=== PATIENT | female | born 1960 | race Caucasian/White ===

== ENCOUNTER → 2018-07-28 | Outpatient (CLI) | payer BC ==
--- NOTE | 2018-07-29 08:06 | MM ---
Reason for exam: screening (asymptomatic). Last mammogram was performed 2 years and 11 months ago. History: Patient is postmenopausal and had first child at age 34. Physical Findings: A clinical breast exam by your physician is recommended on an annual basis and results should be correlated with mammographic findings. MG 3D Screening Mammo W/Cad Bilateral CC and MLO view(s) were taken. Prior study comparison: September 12, 2015, bilateral MG 3d screening mammo w/cad. August 11, 2013, bilateral digital screening mammo w/CAD. There are scattered fibroglandular densities. Focal asymmetry upper outer right beast anterior third position. This finding is changed when compared with previous exams. ASSESSMENT: Incomplete: need additional imaging evaluation, BI-RAD 0 RECOMMENDATION: Special view mammogram of the right breast. If lesion persists on supplemental views, image directed ultrasound is recommended. [facility] will attempt to contact patient to return for supplemental views and ultrasound if indicated.
== END ==
LOC: RADMAMWWP 07:25
PROVIDERS: ATTEND Internal Medicine
DX: Z12.31 Encounter for screening mammogram for malignant neoplasm of breast (principal)
CPT/HCPCS: 77063; 77067

== ENCOUNTER → 2018-07-31 | Outpatient (CLI) | payer BC ==
--- NOTE | 2018-07-31 14:21 | MM ---
Reason for exam: additional evaluation requested from abnormal screening. Last mammogram was performed less than 1 month ago. History: Patient is postmenopausal and had first child at age 34. Physical Findings: Nurse did not find any significant physical abnormalities on exam. MG 3D Work Up W/Cad RT CC and MLO view(s) were taken of the right breast. Prior study comparison: July 28, 2018, bilateral MG 3d screening mammo w/cad. September 12, 2015, bilateral MG 3d screening mammo w/cad. There are scattered fibroglandular densities. No suspicious abnormality. Lower outer quadrant anterior depth focal asymmetry improves on additional views and appears similar back to 2016. No significant new findings when compared with previous films. These results were verbally communicated with the patient and result sheet given to the patient on 07/31/18. ASSESSMENT: Benign, BI-RAD 2 RECOMMENDATION: Return to routine screening mammogram schedule for both breasts.
== END | disposition home or self-care (01) ==
LOC: RADMAMWWP 13:22
PROVIDERS: ATTEND Internal Medicine
DX: R92.8 Other abnormal and inconclusive findings on diagnostic imaging of breast (principal)
CPT/HCPCS: 77061; 77065

== ENCOUNTER → 2021-04-26 | Outpatient (CLI) | payer BC | END | disposition home or self-care (01) | LOC: LABWHC1 09:20 | PROVIDERS: ATTEND Internal Medicine Gastroenterology | DX: R19.7 Diarrhea, unspecified (principal) | CPT/HCPCS: 83630; 87324 ==

== ENCOUNTER → 2022-04-25 | Outpatient (CLI) | payer BC ==
--- NOTE | 2022-04-25 09:29 | MM ---
Reason for Exam: Screening (asymptomatic). Last mammogram was performed 3 year(s) and 9 month(s) ago. Patient History: Menarche at age 10. First Full-Term at age 34. Late child-bearing (after 30). Postmenopausal. Risk Values: Mariam 5 year model risk: 2.2%. NCI Lifetime model risk: 9.1%. Prior Study Comparison: 09/12/2015 Bilateral Screening Mammogram, [facility]. 07/28/2018 Bilateral Screening Mammogram, [facility]. 07/31/2018 Right Diagnostic Mammogram, [facility]. Tissue Density: There are scattered fibroglandular densities. Findings: Analyzed By CAD. There is no suspicious group of microcalcifications or new suspicious mass in either breast. Overall Assessment: Negative, BI-RAD 1 Management: Screening Mammogram of both breasts in 1 year. A clinical breast exam by your physician is recommended on an annual basis and results should be correlated with mammographic findings. Electronically signed and approved by: Prakash Malave M.D.
== END | disposition home or self-care (01) ==
LOC: RADMAMWWP 07:13
PROVIDERS: ATTEND Internal Medicine
DX: Z12.31 Encounter for screening mammogram for malignant neoplasm of breast (principal); Z78.0 Asymptomatic menopausal state
CPT/HCPCS: 77063; 77067

== ENCOUNTER → 2023-06-10 | Outpatient (CLI) | payer BC ==
--- NOTE | 2023-06-10 13:04 | BD ---
EXAMINATION TYPE: Axial Bone Density DATE OF EXAM: 06/10/2023 CLINICAL HISTORY: 63 years old Female. ICD-10 CODE: N95.8 OTHER SPECIFIED MENOPAUSAL AND PERIMENOPAU ESTELLA Height: 61.5" Weight: 129.3lbs FRAX RISK QUESTIONS: Alcohol (3 or more units per day): No Family History (Parent hip fracture): No Glucocorticoids (More than 3mos): Possibly, in 2009 for ulcerative colitis, taken for 2 months (Ex: prednisone, prednisolone, methylprednisolone, dexamethasone, and hydrocortisone). History of Fracture in Adulthood: Yes Secondary Osteoporosis: 1. Type 1 Diabetes: No 2. Hyperthyroidism: No 3. Menopause before 45: No 4. Malnutrition: No 5. Chronic liver disease: No Rheumatoid Arthritis: No Current Tobacco Use: No RISK FACTORS HISTORY OF: Hip Fracture (Right/Left): Yes, left femur fx, radha and screws through hip as well Spine Fracture: No History of Wrist Fracture: Yes, Left When: 1990 Surgery to Spine/Hip(right/left)/Wrist (right/left): Left wrist When: 1990 Family History of Osteoporosis: Yes, Mother Active: Yes Diet low in dairy products/other sources of calcium: No Postmenopausal woman: Yes Lost more than 2 inches in height since high school: No Frequent falls: No Poor Health: No Hyperparathyroidism: No Adrenal Insufficiency: No MEDICATIONS: Prednisone or other steroids: No Thyroid Medications: No Osteoporosis Medications: No Additional Medications: Ulcerative Colitis meds, cholesterol meds, Vitamin D, Multivitamin Additional History: Ulcerative Colitis. Left femur fx with sx, only scanned right femur/hip EXAM MEASUREMENTS: Bone mineral densitometry was performed using the [employer] System. Bone mineral density as measured about the Lumbar spine is: ----- L1-L4(G/cm2): 0.927 T Score Values are as follows: ----- L1: -2.4 ----- L2: -2.8 ----- L3: -1.9 ----- L4: -1.8 ----- L1-L4: -2.1 Z Score Values are as follows: ----- L1: -0.6 ----- L2: -1.0 ----- L3: -0.1 ----- L4: 0.0 ----- L1-L4: -0.3 Baseline @MPH Bone mineral density about the R hip (g/cm2): 1.039 T Score values are as follows: -----R Neck: -0.5 -----R Total: 0.3 Z Score values are as follows: -----R Neck: 1.0 -----R Total: 1.6 Baseline @MPH FRAX%s: The graph provided illustrates a 12.0% chance for a major osteoporotic fx and a 0.6% chance f or the hips probability for fx in 10 years time. IMPRESSION: Osteopenia (T Score between -2.5 and -1). There is slightly increased risk of fracture and the patient may be considered for treatment. Re-Screen 2-5 years. NOTE: T-SCORE=SD OF THE YOUNG ADULT MEAN.
== END | disposition home or self-care (01) ==
LOC: RADBDWWP 08:24
PROVIDERS: ATTEND Internal Medicine
DX: M85.89 Other specified disorders of bone density and structure, multiple sites (principal); M81.0 Age-related osteoporosis without current pathological fracture; Z78.0 Asymptomatic menopausal state
CPT/HCPCS: 77080

== ENCOUNTER → 2023-06-20 | Outpatient (CLI) | payer BC ==
--- NOTE | 2023-06-20 10:28 | MM ---
Reason for Exam: Screening (asymptomatic). Last mammogram was performed 1 year(s) and 1 month(s) ago. Patient History: Menarche at age 10. First Full-Term at age 34. Late child-bearing (after 30). Postmenopausal. Risk Values: Mariam 5 year model risk: 2.3%. NCI Lifetime model risk: 8.6%. Prior Study Comparison: 07/28/2018 Bilateral Screening Mammogram, [facility]. 07/31/2018 Right Diagnostic Mammogram, [facility]. 04/25/2022 Bilateral MG 3D screening mammo w/cad, [facility]. Tissue Density: There are scattered fibroglandular densities. Findings: Analyzed By CAD. There is no suspicious group of microcalcifications or new suspicious mass in either breast. Overall Assessment: Negative, BI-RAD 1 Management: Screening Mammogram of both breasts in 1 year. A clinical breast exam by your physician is recommended on an annual basis and results should be correlated with mammographic findings. Note on Mariam scores and lifetime risk: 1. A Mariam score greater than 3% is considered moderate risk. If this is the case, consider specialist referral to assess eligibility for a risk reducing agent. If overall lifetime risk for the development of breast cancer is 20% or higher, the patient may qualify for future screening with alternating mammogram and breast MRI. Electronically signed and approved by: Terry Mejia D.O.
== END | disposition home or self-care (01) ==
LOC: RADMAMWWP 07:43
PROVIDERS: ATTEND Internal Medicine
DX: Z12.31 Encounter for screening mammogram for malignant neoplasm of breast (principal); Z78.0 Asymptomatic menopausal state
CPT/HCPCS: 77063; 77067

== ENCOUNTER → 2024-01-27 | Outpatient (CLI) | payer BC ==
--- NOTE | 2024-01-27 11:22 | CA ---
Exercise Stress Test Report Name: Carolyn Damon Exam Date: 01/27/2024 09:20 Exam Location: [facility] Ht (in): 62 Wt (lb): 129 BSA: 1.59 Ordering Phys: Thelma Gordon MD Referring Phys: Thelma Gordon MD Technologist: Aurea Nolan RDCS Age: 63 Gender: F : 1960 Procedure CPT: Indications: I10 HTN ICD-10 Codes: Patient History: Medications: SEE LIST Meds past 24 hrs: Pretest Chest Pain: STRESS TEST Luis Protocol Exercise Duration (min:sec): 09:[address] Depressions (mm): Angina Score: Matt Score: Resting HR (bpm): 72 Peak HR (bpm): 134 Resting BP (mmHg): 176 / 78 Peak BP (mmHg): 204 / 70 MPHR: 155 Target HR: 132 % MPHR: 86 METS: 10.9 Total Dose: Peak Dose: Atropine: Double Product: 40116 BP Response: Stress Termination: Reached target heart rate Stress Symptoms: WINDED, SLIGHT HEADACHE Stress Summary: ECG ANALYSIS Resting ECG: Normal sinus rhythm normal axis normal intervals Stress ECG: Patient exercised on Luis protocol for 9 and half minutes achieving 85% of predicted maximal heart rate without chest pain or diagnostic ST segment depression CONCLUSIONS good exercise tolerance Negative stress test by EKG criteria Dr. Mick Sanders MD (Electronically Signed) Final Date: 27 January 2024 11:21
--- NOTE | 2024-01-27 11:25 | CA ---
Transthoracic Echo Report Name: Carolyn Damon Age: 63 Gender: F : 1960 Exam Date: 01/27/2024 08:47 Exam Location: [facility] Ht (in): 62 Wt (lb): 129 Ordering Physician: Thelma Gordon MD Attending/Referring Phys: Thelma Gordon MD Stockroom Clerk Elise Casillas, RD Procedure CPT: Indications: I10 HTN Cardiac Hx: Technical Quality: Good Contrast 1: Total Dose (mL): Contrast 2: Total Dose (mL): MEASUREMENTS (Male / Female) Normal Values 2D ECHO LV Diastolic Diameter PLAX 3.4 cm 4.2 - 5.9 / 3.9 - 5.3 cm LV Systolic Diameter PLAX 1.7 cm IVS Diastolic Thickness 1.1 cm 0.6 - 1.0 / 0.6 - 0.9 cm LVPW Diastolic Thickness 1.0 cm 0.6 - 1.0 / 0.6 - 0.9 cm LV Relative Wall Thickness 0.6 RV Internal Dim ED PLAX 2.9 cm LA Systolic Diameter LX 3.6 cm 3.0 - 4.0 / 2.7 - 3.8 cm LV Diastolic Volume MOD BP 56.2 cm??? 67 - 155 / 56 - 104 cm??? LV Systolic Volume MOD BP 17.2 cm??? 22 - 58 / 19 - 49 cm??? LV Ejection Fraction MOD BP 69.5 % >= 55 % LV Cardiac Index MOD BP 1673.9 cm???/min???m??? LV Diastolic Volume MOD 4C 55.7 cm??? LV Systolic Volume MOD 4C 18.9 cm??? LV Ejection Fraction MOD 4C 66.1 % LV Cardiac Index MOD 4C 1578.7 cm???/min???m??? LV Diastolic Length 4C 6.2 cm LV Systolic Length 4C 4.4 cm LV Diastolic Volume MOD 2C 56.3 cm??? LV Systolic Volume MOD 2C 15.5 cm??? LV Ejection Fraction MOD 2C 72.4 % LV Cardiac Index MOD 2C 1748.6 cm???/min???m??? LV Diastolic Length 2C 6.1 cm LV Systolic Length 2C 4.2 cm LA Volume 61.0 cm??? 18 - 58 / 22 - 52 cm??? LA Volume Index 37.9 cm???/m??? 16 - 28 cm???/m??? M-MODE Aortic Root Diameter MM 2.8 cm LA Systolic Diameter MM 3.3 cm LA Ao Ratio MM 1.2 AV Cusp Separation MM 1.5 cm DOPPLER AI Peak Velocity 325.1 cm/s AI Peak Gradient 42.3 mmHg AI Pressure Half Time 1228.4 ms MV Area PHT 3.4 cm??? Mitral E Point Velocity 59.4 cm/s Mitral A Point Velocity 68.0 cm/s Mitral E to A Ratio 0.9 MV Deceleration Time 221.8 ms TR Peak Velocity 219.0 cm/s TR Peak Gradient 19.2 mmHg FINDINGS Left Ventricle Left ventricular ejection fraction is estimated at 55-60 %. Mildly increased septal wall thickness. Left ventricular cavity size normal. No obvious regional wall motion abnormalities. Right Ventricle Normal right ventricular size and function. Right ventricular systolic pressure within normal limits. Right Atrium Normal right atrial size. Left Atrium Mildly increased left atrial volume. Mitral Valve Structurally normal mitral valve. Mild mitral regurgitation.no mitral stenosis. Aortic Valve Trileaflet aortic valve. No aortic stenosis. Mild aortic regurgitation. Tricuspid Valve Structurally normal tricuspid valve. Mild tricuspid regurgitation. No tricuspid stenosis. Pulmonic Valve Structurally normal pulmonic valve. Trace pulmonic regurgitation. No pulmonic stenosis. Pericardium No pericardial or pleural effusion. Aorta Normal size aortic root and proximal ascending aorta. CONCLUSIONS Normal LV function Mild mitral and dilated regurgitation Previewed by: Dr. Mick Sanders MD (Electronically Signed) Final Date: 27 January 2024 11:24
== END | disposition home or self-care (01) ==
LOC: RADECHMAIN 08:33
PROVIDERS: ATTEND Internal Medicine
DX: I10 Essential (primary) hypertension (principal)
CPT/HCPCS: 93017; 93306

== ENCOUNTER → 2024-08-02 | Outpatient (CLI) | payer BC ==
--- NOTE | 2024-08-02 22:31 | MM ---
Reason for Exam: Screening (asymptomatic). Last mammogram was performed 1 year(s) and 2 month(s) ago. Patient History: Menarche at age 10. First Full-Term at age 34. Late child-bearing (after 30). Postmenopausal. Risk Values: Mariam 5 year model risk: 2.3%. NCI Lifetime model risk: 8.2%. Prior Study Comparison: 07/31/2018 Right Diagnostic Mammogram, [facility]. 04/25/2022 Bilateral MG 3D screening mammo w/cad, [facility]. 06/20/2023 Bilateral MG 3D screening mammo w/cad, [facility]. Tissue Density: There are scattered areas of fibroglandular density. Findings: Analyzed By CAD. The pattern is symmetrical. No significant interval change a prominent veins present greater on the left remain stable No suspicious groups of microcalcifications, spiculated or lobular masses, architectural distortion or other secondary signs of malignancy are mammographically apparent. Overall Assessment: Benign, BI-RAD 2 Management: Screening Mammogram of both breasts in 1 year. A negative mammogram report should not preclude additional follow up of suspicious palpable abnormalities. Patient should continue monthly self breast exam. A clinical breast exam by your physician is recommended on an annual basis and results should be correlated with mammographic findings. Note on Mariam scores and lifetime risk: 1. A Mariam score greater than 3% is considered moderate risk. If this is the case, consider specialist referral to assess eligibility for a risk reducing agent. 2. If overall lifetime risk for the development of breast cancer is 20% or higher, the patient may qualify for future screening with alternating mammogram and breast MRI. [facility], , 08/02/2024 10:28 PM. Electronically signed and approved by: Cl Flynn D.O. Radiologis
== END | disposition home or self-care (01) ==
LOC: RADMAMWWP 16:22
PROVIDERS: ATTEND Internal Medicine
DX: Z12.31 Encounter for screening mammogram for malignant neoplasm of breast (principal); R92.323 Mammographic fibroglandular density, bilateral breasts; Z78.0 Asymptomatic menopausal state
CPT/HCPCS: 77063; 77067